=== PATIENT | male | born 1970 | race African-American/Black ===

== ENCOUNTER 2018-08-13 22:13 | Emergency (ER) | payer BC, OTHER ==
[~2018-08-13] VITALS: Ht 185.4 cm; Wt 111.1 kg
[~2018-08-13 22:13] MED LIST: EPI PEN; LORA10CA7 PO
[2018-08-13 22:20] VITALS: BP 165/82
[2018-08-13] MEDS ORDERED: diphenhdrAMINE HCL 25 MG CAP PO ONE ×2 (22:23→22:30)
[2018-08-13] MEDS ORDERED: methylPREDNISolone SOD SUCC 125 MG/2 ML VL ONE (22:23)
[2018-08-13] MEDS ORDERED: methylPREDNISolone SOD SUCC 125 MG/2 ML VL IM ONE (22:30)
[2018-08-14] MEDS ORDERED: FAMOTIDINE 20 MG TAB PO ONE (01:30)
[2018-08-14] MEDS ORDERED: LORATADINE 10 MG TAB PO ONE (01:30)
[2018-08-14] MEDS ORDERED: methylPREDNISolone SOD SUCC 125 MG/2 ML VL IM ONE (01:30)
== END 2018-08-14 01:52 | disposition home or self-care (01) ==
LOC: ER 22:13
DX: T78.40XA Allergy, unspecified, initial encounter (principal); Z91.013 Allergy to seafood; X58.XXXA Exposure to other specified factors, initial encounter
CPT/HCPCS: 70360; 96372; 99283; J2930